=== PATIENT | male | born 1955 | race Caucasian/White ===

== ENCOUNTER 2019-08-07 17:10 | Outpatient (RCR) | payer OTHER, SELFPAY ==
[2019-08-07 18:42] LABS: Prostate Specific Antigen < 0.1 ng/mL (< OR = 4.0)
== END 2019-11-05 23:59 | disposition home or self-care (01) ==
LOC: ANHLAB 17:10
PROVIDERS: PCP Internal Medicine
DX: C61 Malignant neoplasm of prostate (principal)
CPT/HCPCS: 36415; 84153; G0103

== ENCOUNTER 2019-11-24 16:34 | Outpatient (RCR) | payer OTHER, SELFPAY ==
[2019-11-24 17:57] LABS: Prostate Specific Antigen < 0.1 ng/mL (< OR = 4.0)
== END 2020-02-22 23:59 | disposition home or self-care (01) ==
LOC: ANHLAB 16:34
PROVIDERS: PCP Internal Medicine
DX: C61 Malignant neoplasm of prostate (principal)
CPT/HCPCS: 36415; 84153

== ENCOUNTER 2020-02-16 15:53 | Outpatient (CLI) | payer OTHER, SELFPAY ==
[2020-02-16 17:11] LABS: Prostate Specific Antigen < 0.1 ng/mL (< OR = 4.0)
== END 2020-02-16 15:54 | disposition home or self-care (01) ==
DX: C61 Malignant neoplasm of prostate (principal)
CPT/HCPCS: 36415; 84153

== ENCOUNTER 2020-04-29 15:33 | Outpatient (CLI) | payer OTHER, SELFPAY ==
[2020-04-29 16:16] LABS: Basophils Absolute Auto 0.1 K/mm3 (0.0-0.1); Eosinophils Absolute Auto 0.1 K/mm3 (0-0.3); Eosinophils Percent Auto 1.5 % (0-4.4); Hematocrit 40.4 % (42.0-52.0); Hemoglobin 13.6 g/dL (14.0-18.0); Immature Granulocyte Absolute 0.04 K/mm3 (0.00-0.031); Immature Granulocyte Percent A 0.6 % (0-0.5); Immature Platelet Fraction Pct 4.1 % (0.9-11.2); Lymphocytes Absolute Auto 2.32 K/mm3 (0.9-3.2); Mean Corpuscular HGB Conc 33.7 g/dl (32-36); Mean Corpuscular Volume 98.1 fl (80-100); Mean Platelet Volume 10.8 fl (7.4-10.4); Monocytes Absolute Auto 0.6 K/mm3 (0.1-0.6); Monocytes Percent Auto 8.8 % (2.6-8.5); Neutrophils Absolute Auto 3.7 K/mm3 (1.3-6.7); Neutrophils Percent Auto 54.1 % (45.5-73.1); Platelet Count Result 146 k/mm3 (150-375); Red Blood Count 4.12 M/mm3 (4.6-6.20); Red Cell Distribution Width 13.1 % (11.5-14.5); White Blood Count 6.8 K/mm3 (4.5-10.0)
[2020-04-29 16:26] LABS: Alanine Aminotransferase 38 U/L (4-50); Albumin Level 4.4 g/dL (3.5-5.1); Alkaline Phosphatase 140 U/L (38-126); Anion Gap 12.9 mmol/L (7-16); Aspartate Amino Transferase 30 U/L (17-59); Bilirubin,Total 0.5 mg/dL (0.2-1.3); Blood Urea Nitrogen 20 mg/dL (9-20); Calcium 8.9 mg/dL (8.4-10.2); Carbon Dioxide 26 mmol/L (22-30); Chloride 103 mmol/L (98-107); Cholesterol 137 mg/dL (0-200); Estimated Glomerular Filt Rate > 60; Glucose 130 mg/dL (75-110); HDL Direct 42 mg/dL; Potassium 3.9 mmol/L (3.4-5.0); Sodium 138 mmol/L (137-145); Triglycerides 148 mg/dL (<150)
[2020-04-29 16:36] LABS: LDL Cholesterol Direct 81 mg/dL
[2020-04-29 16:55] LABS: Prostate Specific Antigen < 0.1 ng/mL (< OR = 4.0)
[2020-04-29 23:39] LABS: Free T4 Free Thyroxine Reflex 0.92 ng/dL (0.78-2.19)
[2020-04-30 00:29] LABS: Total Triiodothyronine (T3) 1.63 NG/ML (0.97-1.69)
== END 2020-04-29 15:34 | disposition home or self-care (01) ==
PROVIDERS: PCP Internal Medicine; Visit Provider Internal Medicine
DX: E78.5 Hyperlipidemia, unspecified (principal)
CPT/HCPCS: 36415; 80053; 80061; 84153; 84439; 84443; 84480; 85025; 85055

== ENCOUNTER 2020-11-29 13:28 | Outpatient (RCR) | payer OTHER, SELFPAY ==
[2020-11-29 14:35] LABS: Prostate Specific Antigen < 0.1 ng/mL (< OR = 4.0)
== END 2021-02-27 23:59 | disposition home or self-care (01) ==
LOC: ANHLAB 13:28
PROVIDERS: PCP Internal Medicine
DX: C61 Malignant neoplasm of prostate (principal)
CPT/HCPCS: 36415; 84153

== ENCOUNTER 2021-04-18 08:42 | Outpatient (CLI) | payer OTHER, SELFPAY ==
[2021-04-18 09:11] LABS: Basophils Absolute Auto 0.1 K/mm3 (0.0-0.1); Basophils Percent Auto 1.3 % (0.2-1.2); Eosinophils Absolute Auto 0.2 K/mm3 (0-0.3); Eosinophils Percent Auto 2.9 % (0-4.4); Hematocrit 40.1 % (42.0-52.0); Hemoglobin 12.9 g/dL (14.0-18.0); Immature Granulocyte Absolute 0.04 K/mm3 (0.00-0.031); Immature Granulocyte Percent A 0.6 % (0-0.5); Lymphocytes Percent Auto 33.4 % (18.3-44.2); Mean Corpuscular HGB Conc 32.2 g/dl (32-36); Mean Corpuscular Hemoglobin 32.3 pg (26-34); Mean Corpuscular Volume 100.3 fl (80-100); Mean Platelet Volume 10.9 fl (7.4-10.4); Monocytes Absolute Auto 0.6 K/mm3 (0.1-0.6); Monocytes Percent Auto 8.4 % (2.6-8.5); Neutrophils Absolute Auto 3.7 K/mm3 (1.3-6.7); Neutrophils Percent Auto 53.4 % (45.5-73.1); Platelet Count Result 135 k/mm3 (150-375); White Blood Count 6.9 K/mm3 (4.5-10.0)
[2021-04-18 09:35] LABS: Alanine Aminotransferase 30 U/L (4-50); Albumin Level 4.3 g/dL (3.5-5.1); Alkaline Phosphatase 131 U/L (38-126); Anion Gap 9 mmol/L (8-16); Aspartate Amino Transferase 27 U/L (17-59); Bilirubin,Total 0.6 mg/dL (0.2-1.3); Blood Urea Nitrogen 16 mg/dL (9-20); Calcium 9.7 mg/dL (8.4-10.2); Carbon Dioxide 27 mmol/L (22-30); Chloride 102 mmol/L (98-107); Cholesterol 122 mg/dL (0-200); Estimated Glomerular Filt Rate > 60; Glucose 119 mg/dL (75-110); HDL Direct 39 mg/dL; Potassium 4.5 mmol/L (3.4-5.0); Sodium 138 mmol/L (137-145); Triglycerides 101 mg/dL (<150)
[2021-04-18 09:38] LABS: LDL Cholesterol Direct 55 mg/dL
[2021-04-18 09:57] LABS: Prostate Specific Antigen < 0.1 ng/mL (< OR = 4.0)
[2021-04-18 10:17] LABS: Creatinine Urine 165.4 mg/dL
[2021-04-18 10:20] LABS: MALB Creatinine Ratio 3.9 mg/g (0-30); Microalbumin Urine Random 6.4 mg/L (0-16.7)
[2021-04-18 10:32] LABS: Free T4 Free Thyroxine 0.93 ng/mL (0.78-2.19)
[2021-04-18 11:10] LABS: Hemoglobin A1C 5.9 % (<5.7)
== END 2021-04-18 08:43 | disposition home or self-care (01) ==
PROVIDERS: PCP Internal Medicine; Visit Provider Internal Medicine
DX: E78.5 Hyperlipidemia, unspecified (principal); E11.9 Type 2 diabetes mellitus without complications; C61 Malignant neoplasm of prostate
CPT/HCPCS: 36415; 80053; 80061; 82043; 83036; 84153; 84439; 84443; 85025

== ENCOUNTER 2022-01-17 02:56 | Emergency (ER) | payer OTHER, SELFPAY ==
[2022-01-17] VITALS (8 sets, daily range): BP systolic 151–165; BP diastolic 62–72; PULSE 60–64; RESP 16; TEMP 36.6; O2SAT 96–97
--- NOTE | ~2022-01-17 | CT_ITS ---
EXAMINATION: CT abdomen pelvis wo con DATE: 01/17/2022 04:47 INDICATION: Urinary retention. Hematuria. Prostate cancer. TECHNIQUE: Computed tomography (CT) of the abdomen and pelvis was performed without intravenous contr ast. Automated exposure control and iterative reconstruction technique were employed. The dose-length product was 603.25 mGy-cm. COMPARISON: None. FINDINGS: The visualized portions of the lung bases demonstrate mild atelectasis. No pleural effusion . Cardiomegaly is noted. There are coronary artery calcifications. No pericardial effusion. The liver demonstrates hypertrophy of left lateral segment. The gallbladder, spleen, pancreas, adrenal glands, and right kidney are normal. There is a 3 mm stone in left kidney. The bladder is decompressed by a Seay catheter. There is hematoma in the bladder. There is a left inguinal hernia containing a portio n of the bladder. There is a right inguinal hernia containing fat. There are changes of prostatectomy . There is diverticulosis of the colon without evidence of diverticulitis. The appendix is normal. Th ere is a 5.3 cm fusiform aneurysm of infrarenal aorta with stent graft in expected position. Median s ternotomy wires are noted. There is mild thoracolumbar spondylosis. There is a chronic compression fr acture of T10. IMPRESSION: 1. Acute hematoma in the bladder. 2. Left inguinal hernia containing a portion of the bladder. 3. 3 mm nonobstructing left kidney stone. 4. 5.3 cm fusiform aneurysm of infrarenal aorta with stent graft in expected position. Reviewed, dictated and finalized at location A. IMPRESSION: 1. Acute hematoma in the bladder. 2. Left inguinal hernia containing a portion of the bladder. 3. 3 mm nonobstructing left kidney stone. 4. 5.3 cm fusiform aneurysm of infrarenal aorta with stent graft in expected po sition.
--- NOTE | 2022-01-17 03:18 | ED.ABDPAIN ---
HPI - Abdominal Pain General Chief Complaint: Abdominal Pain Stated Complaint: Lower abdominal pain Time Seen by Provider: 01/17/22 03:01 Source: patient Mode of arrival: ambulatory Limitations: no limitations History of Present Illness HPI narrative: 66-year-old male presents emergency room secondary to inability to urinate. He is got significant lower abdominal pain. He states he has some mild pain to the flanks. No history of any kidney stones. He has similar type issue in the past and states he passed a blood clot when he urinated and got significant relief after that. Is got a history of prostate cancer and underwent a total prostatectomy. He had radiation treatment as well. Denies any chills or fevers. No nausea vomiting. Related Data Home Medications Medication Instructions Recorded Confirmed atorvastatin 01/17/22 01/17/22 metformin mg 01/17/22 omeprazole 01/17/22 Allergies Allergy/AdvReac Type Severity Reaction Status Date / Time No Known Allergies Allergy Verified 01/17/22 03:50 Review of Systems Review of Systems: CONSTITUTIONAL: Denies fever, chills, or sweats. EYES: Denies visual changes, redness, or discharge. ENT: Denies rhinorrhea, congestion, sore throat, or otalgia. CARDIOVASCULAR: Denies chest pain, palpitations, or edema. RESPIRATORY: Denies cough or dyspnea. GASTROINTESTINAL: Lower abdominal pain. No vomiting. Trouble having bowel movements and using during GENITOURINARY: Difficulty urinating. SKIN: Denies rash or itching. MUSCULOSKELETAL: Denies back pain, joint pain, or myalgia. NEUROLOGIC: Denies headache, numbness, or weakness. PSYCHIATRIC: Denies anxiety or depression. [facility] Family History Family History Mother Family history of pancreatic cancer Other Carcinoma of colon Family history of coronary artery disease Social History Social History Smoking status: Former smoker Smoking end date: 10/04/09 Alcohol intake: current Exam Narrative: APPEARANCE: Well appearing, no pain or distress, well-nourished. Head normocephalic and atraumatic. EYES: PERRLA/EOMI, conjunctivae very clear. NOSE: Normal with no drainage EARS:TMS clear Greg Ambriz, with good light reflex. THROAT: Pharynx clear, no exudate. NECK: Supple. No adenopathy, no masses. RESPIRATORY: Airway patent, respirations nonlabored. Clear to auscultation bilaterally, no rales, rhonchi, wheezing. CARDIOVASCULAR: Regular rate and rhythm without murmurs, rubs, or gallops. ABDOMINAL: Abdomen is distended and tender in the suprapubic region. Musculoskeletal: Moves all extremities. Strength/ROM intact, No edema, No calf tenderness. NEURO: Alert. Cranial nerves II through XII intact. Normal gait. Good coordination. Nonfocal examination. SKIN:: Warm, dry. Normal Color PSYCHIATRIC: Normal affect/mood, normal interaction Course Course Emergency Course: Bladder scan was performed showing about 600 to 700 cc of urine in his bladder. Patient went to the bathroom he could not urinate. Subsequently will insert a Seay catheter. Vital Signs Vital signs: Vital Signs Temperature 97.9 F 01/17/22 03:00 Pulse Rate 64 01/17/22 03:00 Respiratory Rate 16 01/17/22 03:00 Blood Pressure 160/68 H 01/17/22 03:00 Pulse Oximetry 97 01/17/22 03:00 Temperature 97.9 F 01/17/22 03:00 Pulse Rate 64 01/17/22 03:00 Respiratory Rate 16 01/17/22 03:00 Blood Pressure 158/69 H 01/17/22 06:01 Pulse Oximetry 97 01/17/22 03:00 MDM - Abdominal Pain MDM Narrative Medical decision making narrative: Patient had a Seay catheter inserted. Had to dislodge some blood clots and after that had bloody urine coming out. Over period of time it cleared up. Presentation is consistent with hemorrhagic cystitis. This was all explained to the patient and his family. CT scan was performed at the request shows a smal
[2022-01-17 03:52] LABS: Add Urine Microscopic? YES; Appearance Urine Cloudy (Clear); Basophils Absolute Auto 0.1 K/mm3 (0.0-0.1); Basophils Percent Auto 0.8 % (0.2-1.2); Bilirubin Urine 3+ (Negative); Blood Urine 3+ (Negative); Color Urine Red (Yellow); Glucose Urine UA Negative (Negative); Hemoglobin 12.7 g/dL (14.0-18.0); Immature Granulocyte Absolute 0.04 K/mm3 (0.00-0.031); Immature Granulocyte Percent A 0.4 % (0-0.5); Ketones Urine 1+ mg/dL (Negative); Leukocyte Esterase Ur 3+ LEU/UL (Negative); Lymphocytes Absolute Auto 0.81 K/mm3 (0.9-3.2); Lymphocytes Percent Auto 7.9 % (18.3-44.2); Mean Corpuscular HGB Conc 33.4 g/dl (32-36); Mean Corpuscular Hemoglobin 33.4 pg (26-34); Mean Platelet Volume 11.4 fl (7.4-10.4); Monocytes Absolute Auto 0.6 K/mm3 (0.1-0.6); Monocytes Percent Auto 5.5 % (2.6-8.5); Neutrophils Absolute Auto 8.7 K/mm3 (1.3-6.7); Neutrophils Percent Auto 85.4 % (45.5-73.1); Nitrate Urine Negative (Negative); Platelet Count Result 150 k/mm3 (150-375); Protein Urine 3+ mg/dL (Negative); Red Cell Distribution Width 13.1 % (11.5-14.5); White Blood Count 10.2 K/mm3 (4.5-10.0)
[2022-01-17 03:59] LABS: RBC Urine >75 /hpf (0-2)
[2022-01-17 05:08] LABS: Alanine Aminotransferase 34 U/L (4-50); Albumin Level 4.4 g/dL (3.5-5.1); Alkaline Phosphatase 107 U/L (38-126); Anion Gap 12 mmol/L (8-16); Aspartate Amino Transferase 34 U/L (17-59); Bilirubin,Total 0.4 mg/dL (0.2-1.3); Blood Urea Nitrogen 23 mg/dL (9-20); Carbon Dioxide 21 mmol/L (22-30); Chloride 100 mmol/L (98-107); Estimated CRCL calculation 63 ml/min; Estimated Glomerular Filt Rate > 60; Glucose 193 mg/dL (65-110); Potassium 4.5 mmol/L (3.4-5.0); Sodium 133 mmol/L (137-145)
== END 2022-01-17 06:55 | disposition home or self-care (01) ==
PROVIDERS: Emergency Provider Emergency Medicine; PCP Internal Medicine
DX: N30.80 Other cystitis without hematuria (principal); R33.9 Retention of urine, unspecified; Z85.46 Personal history of malignant neoplasm of prostate; Z79.84 Long term (current) use of oral hypoglycemic drugs; Z92.3 Personal history of irradiation; Z90.79 Acquired absence of other genital organ(s); Z87.891 Personal history of nicotine dependence; I71.9 Aortic aneurysm of unspecified site, without rupture; N20.0 Calculus of kidney; K40.90 Unilateral inguinal hernia, without obstruction or gangrene, not specified as recurrent
CPT/HCPCS: 36415; 51702; 74176; 80053; 81001; 85025; 87086; 99284; A9270

== ENCOUNTER 2022-03-25 17:18 | Outpatient (CLI) | payer OTHER, SELFPAY ==
[2022-03-25 18:41] LABS: Prostate Specific Antigen < 0.1 ng/mL (< OR = 4.0)
== END 2022-03-25 17:19 | disposition home or self-care (01) ==
PROVIDERS: PCP Internal Medicine
DX: C61 Malignant neoplasm of prostate (principal)
CPT/HCPCS: 36415; 84153; G0103

== ENCOUNTER 2022-07-27 09:46 | Outpatient (CLI) | payer OTHER, SELFPAY ==
[2022-07-27 10:27] LABS: Basophils Absolute Auto 0.1 K/mm3 (0.0-0.1); Basophils Percent Auto 1.3 % (0.2-1.2); Eosinophils Absolute Auto 0.1 K/mm3 (0-0.3); Eosinophils Percent Auto 1.6 % (0-4.4); Hematocrit 38.4 % (42.0-52.0); Hemoglobin 12.9 g/dL (14.0-18.0); Immature Granulocyte Absolute 0.04 K/mm3 (0.00-0.031); Immature Granulocyte Percent A 0.6 % (0-0.5); Immature Platelet Fraction Pct 5.5 % (0.9-11.2); Lymphocytes Absolute Auto 2.06 K/mm3 (0.9-3.2); Lymphocytes Percent Auto 30.6 % (18.3-44.2); Mean Corpuscular HGB Conc 33.6 g/dl (32-36); Mean Corpuscular Hemoglobin 33.1 pg (26-34); Mean Corpuscular Volume 98.5 fl (80-100); Mean Platelet Volume 10.8 fl (7.4-10.4); Monocytes Absolute Auto 0.6 K/mm3 (0.1-0.6); Monocytes Percent Auto 8.5 % (2.6-8.5); Neutrophils Absolute Auto 3.9 K/mm3 (1.3-6.7); Neutrophils Percent Auto 57.4 % (45.5-73.1); Platelet Count Result 149 k/mm3 (150-375); Red Cell Distribution Width 13.3 % (11.5-14.5); White Blood Count 6.7 K/mm3 (4.5-10.0)
[2022-07-27 10:42] LABS: Alanine Aminotransferase 43 U/L (6-50); Albumin Level 4.7 g/dL (3.5-5.1); Alkaline Phosphatase 135 U/L (38-126); Anion Gap 12 mmol/L (8-16); Aspartate Amino Transferase 33 U/L (17-59); Bilirubin,Total 0.8 mg/dL (0.2-1.3); Blood Urea Nitrogen 17 mg/dL (9-20); Calcium 8.7 mg/dL (8.4-10.2); Carbon Dioxide 23 mmol/L (22-30); Chloride 102 mmol/L (98-107); Cholesterol 128 mg/dL (0-200); Estimated Glomerular Filt Rate > 60; Glucose 163 mg/dL (65-110); HDL Direct 39 mg/dL; Potassium 4.8 mmol/L (3.4-5.0); Sodium 137 mmol/L (137-145); Triglycerides 68 mg/dL (<150)
[2022-07-27 10:49] LABS: LDL Cholesterol Direct 68 mg/dL
[2022-07-27 11:09] LABS: Prostate Specific Antigen < 0.1 ng/mL (< OR = 4.0)
[2022-07-27 11:17] LABS: Hemoglobin A1C 6.9 % (<5.7)
[2022-07-27 11:27] LABS: Free T4 Free Thyroxine 1.02 ng/mL (0.78-2.19)
[2022-07-27 20:25] LABS: Creatinine Urine 37.2 mg/dL
[2022-07-27 20:28] LABS: MALB Creatinine Ratio 280.9 mg/g (0-30); Microalbumin Urine Random 104.5 mg/L (0-16.7)
[2022-08-04 20:06] LABS: Alpha Fetoprotein Tumor Marker 5.4 ng/mL (<6.1)
== END 2022-07-27 09:47 | disposition home or self-care (01) ==
PROVIDERS: PCP Internal Medicine; Visit Provider Internal Medicine Gastroenterology
DX: R93.2 Abnormal findings on diagnostic imaging of liver and biliary tract (principal); E78.5 Hyperlipidemia, unspecified; Z12.5 Encounter for screening for malignant neoplasm of prostate; E11.9 Type 2 diabetes mellitus without complications
CPT/HCPCS: 36415; 80053; 80061; 82043; 82105; 83036; 84153; 84439; 84443; 85025; 85055; G0103

== ENCOUNTER 2022-07-27 10:41 | Emergency (ER) | payer OTHER, SELFPAY ==
--- NOTE | ~2022-07-27 | US_ITS ---
US pelvic limited 07/27/2022 14:22 Indication: Hematuria with blood clots Procedure: High-resolution transabdominal ultrasound of the pelvis Comparison: No prior studies for comparison. Findings: There is an elongated polypoid filling defect with associated internal vascularity along th e left posterior bladder wall. Cannot exclude transitional cell carcinoma. Bladder wall is mildly thi ckened measuring 8 mm. Impression: 1: Linear polypoid filling defect originating from the left posterior bladder wall. Cannot exclude tr ansitional cell carcinoma. Recommend urology consultation. Reviewed, dictated and finalized at location B. Impression: 1: Linear polypoid filling defect originating from the left posterior bladder w all. Cannot exclude transitional cell carcinoma. Recommend urology consultation .
[2022-07-27 10:51] VITALS: BP 150/60; PULSE 60; RESP 18; TEMP 36.6; O2SAT 97
[2022-07-27 11:15] VITALS: BP 144/71; PULSE 64; RESP 16; O2SAT 96
[2022-07-27] MEDS: LIDOCAINE HCL 2% GEL UROJET 10 ML PKG (11:16)
--- NOTE | 2022-07-27 11:24 | ED.MALEGU ---
HPI - Male Genitourinary General Chief complaint: Urogenital-Male Stated complaint: urinary retention Time Seen by Provider: 07/27/22 10:47 History of Present Illness HPI Narrative: Patient is a 67-year-old male with a history of prostate cancer status postradiation and prostatectomy, and in remission as of 2014, here for evaluation of urinary retention. Patient states that yesterday he was unable to urinate all day, and this resolved after passing two small blood clots at home. Patient states that he woke up today and was again unable to urinate, has had only dribbles of blood coming out of his penis. States that this has happened in the past and resolved after brief time with Seay catheter. He has seen his urologist since then and work-up has been reassuring. He denies any dysuria, urgency, frequency, back pain, abdominal pain, fevers or chills, weakness or confusion. Related Data Home Medications Medication Instructions Recorded Confirmed atorvastatin 80 mg tablet 01/17/22 01/17/22 metformin 500 mg tablet mg 01/17/22 omeprazole 20 mg capsule,delayed 01/17/22 release Allergies Allergy/AdvReac Type Severity Reaction Status Date / Time No Known Allergies Allergy Verified 07/27/22 10:59 Review of Systems Review of Systems: Gen.: Denies fevers or chills Eyes: Denies eye pain or visual change ENT: Denies congestion Respiratory: Denies shortness of breath or cough CV: Denies chest pain or palpitations GI: Denies abdominal pain nausea, emesis or diarrhea reports retention and hematuria. Denies burning, urgency, frequency Musculoskeletal: Denies back pain or muscle pain Neuro: Denies numbness, tingling, weakness or focal weakness Skin: Denies rash Except as documented, all other systems reviewed and negative PMFSH Family History Family History Mother Family history of pancreatic cancer Other Carcinoma of colon Family history of coronary artery disease Social History Social History Smoking status: Former smoker Smoking end date: 10/04/09 Alcohol intake: current Exam Narrative: APPEARANCE: Well appearing, no pain in distress, well-nourished. Head: Normocephalic and atraumatic. EYES: PERRLA/EOMI, conjunctivae clear NOSE: No nasal drainage EARS: External ear normal in appearance THROAT: Oropharynx is clear. Mucous membranes are moist. NECK: Supple. No adenopathy, no masses. RESPIRATORY: Airway patent, respirations nonlabored. Clear to auscultation bilaterally, no rales, rhonchi, wheezing. CARDIOVASCULAR: Regular rate and rhythm without murmurs, rubs, or gallops. ABDOMINAL: Suprapubic fullness; no tenderness. Normoactive bowel sounds. Soft, nontender, nondistended. No rebound tenderness or guarding. MUSCULOSKELETAL: Extremities are warm and well-perfused. Moves all extremities well. No edema. NEURO: Normal speech. No focal neurologic deficits. SKIN: Skin is warm and dry. No rashes. PSYCHIATRIC: Normal affect/mood. Course Vital Signs Vital signs: Vital Signs Temperature 97.8 F 07/27/22 10:51 Pulse Rate 60 07/27/22 10:51 Respiratory Rate 18 07/27/22 10:51 Blood Pressure 150/60 H 07/27/22 10:51 Pulse Oximetry 97 07/27/22 10:51 Oxygen Delivery Room Air 07/27/22 10:51 Temperature 97.8 F 07/27/22 10:51 Pulse Rate 63 07/27/22 12:30 Respiratory Rate 16 07/27/22 12:30 Blood Pressure 144/90 H 07/27/22 12:30 Pulse Oximetry 97 07/27/22 12:30 Oxygen Delivery Room Air 07/27/22 10:51 MDM - Male Genitourinary MDM Narrative Medical decision making narrative: 67-year-old male here for evaluation of hematuria with retention over the past day and a half. Patient is nontoxic-appearing on exam, he had over 700 mils on the postvoid residual scan so Seay catheter was initiated. This had drainage of pink urine, no obvious blood clots noted. Urin
[2022-07-27 12:00] VITALS: BP 147/66; PULSE 57; RESP 20; O2SAT 96
[2022-07-27 12:07] LABS: Add Urine Microscopic? YES; Appearance Urine Cloudy (Clear); Bacteria Urine Trace /hpf; Bilirubin Urine Negative (Negative); Blood Urine 2+ (Negative); Color Urine Amber (Yellow); Glucose Urine UA Negative (Negative); Ketones Urine Negative (Negative); Leukocyte Esterase Ur Negative LEU/UL (Negative); Mucus Urine Rare /lpf; Nitrate Urine Negative (Negative); Protein Urine 1+ mg/dL (Negative); RBC Urine >75 /hpf (0-2); Specific Grav Ur 1.005 (1.001-1.035); Squamous Epithelial Cell Urine Rare /hpf (Few); Urobilinogen Urine Negative mg/dL (<2.0); WBC Urine 21-30 /hpf
[2022-07-27 12:30] VITALS: BP 144/90; PULSE 63; RESP 16; O2SAT 97
== END 2022-07-27 16:04 | disposition home or self-care (01) ==
PROVIDERS: Physician Assistant; Emergency Provider Emergency Medicine; PCP Internal Medicine
DX: R31.9 Hematuria, unspecified (principal); N32.9 Bladder disorder, unspecified; Z92.3 Personal history of irradiation; Z79.84 Long term (current) use of oral hypoglycemic drugs; Z87.891 Personal history of nicotine dependence
CPT/HCPCS: 37618; 51700; 76857; 81001; 87086; 99284

== ENCOUNTER 2022-09-11 09:56 | Outpatient (CLI) | payer OTHER, SELFPAY ==
--- NOTE | ~2022-09-11 | XR_ITS ---
EXAMINATION: XR abdomen/kub 1V INDICATION: Gross hematuria TECHNIQUE: Supine views of the abdomen were obtained on 2 radiographs. COMPARISON: CT, 01/17/2022 FINDINGS: A bifurcated endovascular stent is noted in the aorta. No urolithiasis is identified. A mod erate volume of colonic stool is present. There is mild osteoarthritis of the hips. IMPRESSION: 1. No radiographic correlate for the patient's symptoms. Reviewed, dictated and finalized at location A. [facility]
--- NOTE | ~2022-09-11 | CT_ITS ---
CT of the Abdomen and Pelvis: Indication: Gross hematuria Technique: 5 mm axial scans were obtained through the abdomen and pelvis prior to and following intr avenous administration of 130 cc of Omnipaque. Dose reduction technique was used on this scan by util izing automated exposure control and iterative reconstruction technique. The dose-length product (DLP ) was 1370.38 mGy-cm. COMPARISON: 01/17/2022 Findings: Scans through the lung bases are unremarkable. The liver, spleen, pancreas, gallbladder, adrenals and kidneys are within normal limits. The kidneys excrete contrast bilaterally without evidence of hydronephrosis. Stable 5.3 cm infrarenal abdominal aortic aneurysm with aortic stent graft in place. There are stable hyperdense material within the ane urysm sac on both precontrast and postcontrast images. No lymphadenopathy. Left inguinal hernia contains a focal portion of the sigmoid colon. No bowel obstruction or bowel wal l thickening. No abscess or free air. Images through the pelvis were performed. Urinary bladder is relatively decompressed. There is wall t hickening and irregularity of the urinary bladder which is more apparent on postcontrast images. No a bnormal extravasation of contrast identified. Evidence of prior presumed prostatectomy. Impression: Wall thickening and irregularity of the urinary bladder. Correlate for cystitis versus artifactual ap pearance due to underdistention. Bladder neoplasm not completely excluded. Left inguinal hernia containing a portion of the sigmoid colon. No bowel wall thickening or obstructi on. Stable infrarenal abdominal aortic aneurysm with aortic stent graft in place. Reviewed, dictated and finalized at location . [employer] Impression: Wall thickening and irregularity of the urinary bladder. Correlate for cystitis versus artifactual appearance due to underdistention. Bladder neoplasm not com pletely excluded. Left inguinal hernia containing a portion of the sigmoid colon. No bowel wall t hickening or obstruction. Stable infrarenal abdominal aortic aneurysm with aortic stent graft in place.
[2022-09-11 11:13] LABS: Estimated Glomerular Filt Rate > 60
== END 2022-09-11 09:57 | disposition home or self-care (01) ==
PROVIDERS: PCP Internal Medicine; Visit Provider Nurse Practitioner Adult Health
DX: R31.0 Gross hematuria (principal); I71.43 Infrarenal abdominal aortic aneurysm, without rupture
CPT/HCPCS: 74018; 74178; Q9967

== ENCOUNTER 2023-11-24 09:26 | Outpatient (CLI) | payer OTHER, SELFPAY ==
[2023-11-24 10:58] LABS: Prostate Specific Antigen < 0.1 ng/mL (< OR = 4.0)
== END 2023-11-24 09:27 | disposition home or self-care (01) ==
PROVIDERS: PCP Internal Medicine
DX: C61 Malignant neoplasm of prostate (principal)
CPT/HCPCS: 36415; 84153

== ENCOUNTER 2024-01-07 15:47 | Outpatient (CLI) | payer OTHER, SELFPAY ==
[2024-01-07 16:12] LABS: Basophils Absolute Auto 0.1 K/mm3 (0.0-0.1); Basophils Percent Auto 1.1 % (0.2-1.2); Eosinophils Absolute Auto 0.1 K/mm3 (0-0.3); Hematocrit 41.4 % (42.0-52.0); Immature Granulocyte Absolute 0.01 K/mm3 (0.00-0.031); Immature Granulocyte Percent A 0.1 % (0-0.5); Lymphocytes Absolute Auto 2.35 K/mm3 (0.9-3.2); Lymphocytes Percent Auto 32.8 % (18.3-44.2); Mean Corpuscular HGB Conc 33.8 g/dl (32-36); Mean Corpuscular Hemoglobin 33.7 pg (26-34); Mean Corpuscular Volume 99.5 fl (80-100); Mean Platelet Volume 12.6 fl (7.4-10.4); Monocytes Absolute Auto 0.7 K/mm3 (0.1-0.6); Monocytes Percent Auto 9.9 % (2.6-8.5); Neutrophils Absolute Auto 3.9 K/mm3 (1.3-6.7); Neutrophils Percent Auto 55.1 % (45.5-73.1); Platelet Count Result 98 k/mm3 (150-375); Red Blood Count 4.16 M/mm3 (4.6-6.20); Red Cell Distribution Width 12.9 % (11.5-14.5); White Blood Count 7.2 K/mm3 (4.5-10.0)
[2024-01-07 16:20] LABS: Hemoglobin A1C 5.7 % (<5.7)
[2024-01-07 16:29] LABS: Alanine Aminotransferase 54 U/L (6-50); Albumin Level 4.9 g/dL (3.5-5.1); Alkaline Phosphatase 105 U/L (38-126); Anion Gap 11 mmol/L (4-12); Aspartate Amino Transferase 46 U/L (17-59); Blood Urea Nitrogen 34 mg/dL (9-20); Calcium 10.6 mg/dL (8.4-10.2); Carbon Dioxide 28 mmol/L (22-30); Chloride 104 mmol/L (98-107); Cholesterol 106 mg/dL (0-200); Estimated Glomerular Filt Rate 43; Glucose 123 mg/dL (65-110); HDL Direct 41 mg/dL; Potassium 4.9 mmol/L (3.4-5.0); Sodium 143 mmol/L (137-145); Triglycerides 132 mg/dL (<150)
[2024-01-07 16:40] LABS: LDL Cholesterol Direct 51 mg/dL
[2024-01-07 16:46] LABS: Free T4 Free Thyroxine 1.21 ng/mL (0.78-2.19)
== END 2024-01-07 15:48 | disposition home or self-care (01) ==
LOC: ANHLAB 15:49
PROVIDERS: PCP Internal Medicine; Visit Provider Internal Medicine
DX: E78.5 Hyperlipidemia, unspecified (principal); E11.9 Type 2 diabetes mellitus without complications
CPT/HCPCS: 36415; 80053; 80061; 83036; 84439; 84443; 85025; 85055